=== PATIENT | male | born 1995 | race Caucasian/White ===

== ENCOUNTER 2019-04-12 13:09 | Emergency (ER) | payer BC ==
[~2019-04-12] VITALS: Ht 165.1 cm; Wt 73.9 kg
[2019-04-12 13:17] VITALS: Ht 165.1 cm; Wt 73.9 kg
[2019-04-12 14:10] VITALS: BP 152/65
== END 2019-04-12 14:10 | disposition home or self-care (01) ==
LOC: ED 13:09
DX: L50.9 Urticaria, unspecified (principal); J45.909 Unspecified asthma, uncomplicated; G43.909 Migraine, unspecified, not intractable, without status migrainosus